=== PATIENT | female | born 1975 | race Caucasian/White ===

== ENCOUNTER → 2017-03-31 | Outpatient (REF) ==
--- NOTE | 2017-04-01 00:53 | REP ---
Clinical: Pain and disability. Technique: AP, lateral, coned-down views of the lumbosacral spine. Findings: No acute fracture or subluxation. Alignment and lordosis maintained. Moderate multilevel degenerative changes include marginal osteophytes, endplate sclerosis and minimal disc space narrowing along with mild facet arthropathy. Impression: Mild/moderate multilevel degenerative changes. No acute fracture / compression injury or subluxation. Signed by Omar Mcfadden MD 04/01/2017 12:44 A
--- NOTE | 2017-04-01 00:56 | REP ---
Clinical: Pain and disability. Technique: AP, lateral, open mouth views of the cervical spine. Findings: Moderate to advanced multilevel degenerative changes include anterior osteophytes, endplate sclerosis and disc space narrowing. Findings are most pronounced at the C6-7 and C5-6 levels. No acute fracture / compression injury or subluxation appreciated. Spinous processes are intact. Prevertebral soft tissues are normal. Open mouth view demonstrates normal C1-C2 articulation and odontoid process. Impression: Moderate to advanced multilevel degenerative changes. Signed by Omar Mcfadden MD 04/01/2017 12:47 A
== END ==
LOC: M SMT 14:40
PROVIDERS: ATTEND Internal Medicine
DX: Z02.71 Encounter for disability determination (principal)

== ENCOUNTER → 2021-01-08 | Outpatient (REF) ==
--- NOTE | 2021-01-08 16:19 | REP ---
INDICATION: NECK BACK PAIN. COMPARISON: 03/31/2017 TECHNIQUE: AP, lateral, swimmer's and open-mouth views of the cervical spine. FINDINGS: Alignment and lordosis maintained. No acute fracture/compression injury or subluxation. Moderate/early advanced multilevel degenerative changes include osteophytosis, endplate sclerosis, and disc space narrowing. Findings most pronounced at C6-7 and C5-6. Findings appear mildly progressive as compared to 2017. Open mouth view demonstrates normal C1-C2 articulation and odontoid process. IMPRESSION: Moderate/advanced multilevel degenerative changes spondylosis mildly progressive when compared to prior examination. <Electronically signed by Omar Mcfadden > 01/08/21 [id number]
--- NOTE | 2021-01-08 16:19 | REP ---
INDICATION: NECK BACK PAIN. COMPARISON: 03/31/2017 also three views TECHNIQUE: Three views FINDINGS: Vertebral body height and alignment is unchanged. Small marginal osteophytes again seen on the left at L3-4. Mild disc space narrowing L3-4 through L5-S1 unchanged. Mild degenerative facet joint changes again seen at L4-5 and L5-S1 bilaterally with minimal suspected changes seen at L3-4. The pedicles are again seen to be intact bilaterally. IMPRESSION: Relatively stable appearing chronic changes as described above. <Electronically signed by Rodrick Walden > 01/08/21 [id number]
== END ==
LOC: M PLAIMG 15:09
PROVIDERS: ATTEND Internal Medicine
DX: M54.5 Low back pain (principal)

== ENCOUNTER → 2021-08-04 | Outpatient (REF) | payer OTHER | LOC: M SMT 13:07 | PROVIDERS: ATTEND Specialist | DX: R31.29 Other microscopic hematuria (principal) ==